=== PATIENT | male | born 1985 | race Two or more races ===

== ENCOUNTER 2024-04-09 15:11 | Emergency (ER) | payer BC ==
[~2024-04-09] VITALS: Ht 172.7 cm; Wt 68.0 kg
[2024-04-09] MEDS ORDERED: ADDERALL XR 2525 MG (15:32)
[2024-04-09 17:49] LABS: HEMATOCRIT 42.9 % (39.0-48.0); HEMOGLOBIN 14.5 g/dL (13-16.00); MEAN CELL VOLUME 80.1 fL (80.0-100.00); MEAN CORPUSCULAR HEMOGLOBIN 27.1 pg (27.00-32.0); MEAN CORPUSCULAR HGB CONC 33.9 g/dl (32.0-36.0); PLATELET COUNT 223 K/uL (150-450); RED BLOOD COUNT 5.36 M/uL (4.00-6.00); RED CELL DISTRIBUTION WIDTH 13.8 % (11.5-14.5)
[2024-04-09 18:00] LABS: CALCIUM 9.8 mg/dL (8.5-10.1); CREATININE SERUM 0.99 mg/dL (0.70-1.30); GFR 85.06; POTASSIUM 5.33 mEq/L (3.5-5.1)
== END 2024-04-09 19:26 | disposition home or self-care (01) ==
LOC: ER 15:12
PROVIDERS: General Practice
DX: R07.89 Other chest pain (principal); F41.9 Anxiety disorder, unspecified; E87.5 Hyperkalemia